=== PATIENT | male | born 1955 | race Caucasian/White ===

== ENCOUNTER 2017-12-25 09:41 | Day surgery (SDC) | payer OTHER, SELFPAY ==
--- NOTE | 2017-12-25 | PATH_ITS ---
[facility] Accession Number: [id number] . 01 Material submitted: . RECTAL POLYP BIOPSY . 02 Diagnosis: Rectal Polyp, Biopsy: Hyperplastic polyp. MRV/12/28/2017 . 02 Electronically signed: . Jason Martinez MD, PhD, Pathologist NPI- [id number] . 01 Gross description: . Received in one formalin-filled container labeled with the patient's name and labeled rectal polyp, are two less than 0.1 cm portions of tissue, entirely submitted in one cassette. ([id number]) /FRR . 02 Pathologist provided ICD-10: K62.1 . 02 CPT . 574510 Specimen Comment: A duplicate report has been generated due to demographic updates. Performed at: 01 [facility] [address] [facility] [address] [place] [address], [place], [place] [id number] MD Tyson Rodriges MD Phone: [phone] Performed at: [address] [facility] [address] [place], [place] [id number] MD Jules Lincoln MD Phone: [phone]
[2017-12-25 10:00] VITALS: BP 133/90; PULSE 101; RESP 16; TEMP 36.7; O2SAT 100; BMI 28.1
[2017-12-25] MEDS: SODIUM CHLORIDE 0.9% 1,000 ML 200 ML IV (10:20)
--- NOTE | 2017-12-25 11:19 | PM.HP.1 ---
History of Present Illness Date Patient Seen: 12/25/17 Time Patient Seen: 11:19 Chief complaint: Colonoscopy [id number] Narrative: Patient is a gentleman for screening colonoscopy. Last exam was 10 years ago. He has no family history of colon cancer and no history of polyps. Patient History Medical History Hypertension (Chronic) Type 2 diabetes mellitus (Chronic) Family & Social History Social History: household members spouse Meds Home Medications Medication Instructions Recorded Confirmed Type chlorthalidone 25 mg PO DAILY 12/25/17 12/25/17 History losartan 50 mg PO DAILY 12/25/17 12/25/17 History metformin 500 mg PO BID 12/25/17 12/25/17 History Allergies Allergy/AdvReac Type Severity Reaction Status Date / Time diatrizoate sodium Allergy Severe airway Verified 12/25/17 10:00 [From Hypaque] swelling Review of Systems Review of Systems All systems reviewed & are unremarkable except as noted in HPI and below Respiratory Comments: Has a morning cough Musculoskeletal Comments: Back and neck pain Exam Vital Signs (past 8 hours): - 12/25/17 10:00 Temperature 98.0 F Pulse Rate 101 H Respiratory Rate 16 Blood Pressure 133/90 Pulse Oximetry 100 Oxygen Delivery Method Room Air Narrative Exam Narrative: Operative no apparent distress. Lungs are clear no rales or rhonchi heart regular rate and rhythm without murmur gallop. Abdomen is soft nontender without mass. No tenderness. Alert and oriented x3. Assessment & Plan Plan: Assessment/Plan Narrative: Will proceed to colonoscopy. I have discussed the procedure and the rationale with the patient including risks of bleeding, perforation which would necessitate a major operation, failure to find remove all lesions and the potential to tattoo. They appeared to understand and wished to proceed.
--- NOTE | 2017-12-25 11:31 | PM.PREOP ---
Pre-operative Note Interval Note Pre-op Check: Yes History & Physical exam performed today by Physician Changes: No ASA Class (for procedural sedation): II
[2017-12-25] MEDS: fentaNYL 250 MCG/5 ML INJ IV (11:41)
[2017-12-25] MEDS: MIDAZOLAM 5 MG/5 ML VIAL IV (11:41)
--- NOTE | 2017-12-25 12:03 | PM.OP.ENDO ---
Operative Date/Time/Diagnoses Date of procedure: 12/25/17 Time of procedure: 12:03 Pre-op diagnosis: Screening examination Post-op diagnosis: same (Sigmoid diverticulosis. One rectal polyp.) Procedure & Clinicians Study performed: Colonoscopy with cold biopsy Same procedure as scheduled: Yes Indications: Screening. Last exam 10 years ago. Surgeon: Sage Razo Procedure Notes SCOAP/Timeout: Performed Procedure in detail: The patient was placed in the left lateral decubitus position and underwent IV sedation directed by the surgeon consisting of fentanyl and Versed. Digital exam was unremarkable. The scope was inserted and advanced through the rectum into the sigmoid, descending, transverse, and ascending colon. Patient was noted to have sigmoid diverticulosis.. The cecum was reached identified by the ileocecal valve and the appendiceal opening. The ileocecal valve was[successfully] cannulated. The terminal ileum was normal in appearance. The scope was gradually brought out. A tiny Polypoid lesion was found in the rectum. It was biopsied removal. The scope ultimately was retroflexed in the rectum. The appearance was normal. The scope was removed and the patient tolerated the procedure well Scope withdrawal time: 12 min Sedation minutes: 30 Findings: diverticulosis (Sigmoid) and polyp (Tiny rectal polyp. May not be pre cancerous) Specimen(s): other (Polyp) Complications: none Recommendations: Colonscopy in 5 years (If the polyp is not neoplastic, then 10 years would be more appropriate) Plan for aftercare: Will send a letter regarding follow-up and pathology. Follow up: as needed Disposition: PACU
[2017-12-25 12:06] VITALS: BP 138/89; PULSE 78; RESP 14; TEMP 36.9; O2SAT 97
[2017-12-25 12:11] VITALS: BP 134/86; PULSE 75; RESP 12; O2SAT 95
[2017-12-25 12:16] VITALS: BP 136/95; PULSE 70; RESP 12; O2SAT 98
[2017-12-25 12:21] VITALS: BP 130/92; PULSE 74; RESP 11; O2SAT 97
[2017-12-25 12:26] VITALS: BP 132/91; PULSE 78; RESP 12; TEMP 36.6; O2SAT 97
== END 2017-12-25 12:45 | disposition home or self-care (01) ==
PROVIDERS: Visit Provider Specialist
PROC: 0DJD8ZZ Inspection of Lower Intestinal Tract, Via Natural or Artificial Opening Endoscopic (ICD-10-PCS; CPT 45378; principal; 2017-12-25 10:45)
DX: Z12.11 Encounter for screening for malignant neoplasm of colon (principal); K57.30 Diverticulosis of large intestine without perforation or abscess without bleeding; K62.1 Rectal polyp; I10 Essential (primary) hypertension; E11.9 Type 2 diabetes mellitus without complications; Z79.84 Long term (current) use of oral hypoglycemic drugs
CPT/HCPCS: 45380; 99152; 99153; J2250; J3010